=== PATIENT | male | born 1950 | race Caucasian/White ===

== ENCOUNTER 2020-05-15 05:42 | Day surgery (SDC) | payer MEDICARE, MEDICAID ==
[2020-05-15] MEDS ORDERED: SODIUM CHLORIDE 0.9% 1,000 ML ONE (06:16)
[2020-05-15] MEDS ORDERED: IOHEXOL 300 MG/ML 50 ML VIAL ONE (07:19)
[2020-05-15] MEDS ORDERED: SODIUM BICARBONATE 50 MEQ/50 ML VIAL ONE (07:19)
[2020-05-15] MEDS ORDERED: LIDOCAINE/PF 1% 30 ML VIAL ONE (07:19)
[2020-05-15] MEDS ORDERED: IOHEXOL 300 MG/ML 100 ML VIAL ONE ×2 (07:19→07:29)
[2020-05-15 07:21] LABS: GLUCOMETER DEV NAME(LOC) SDS.; GLUCOSE,POINT OF CARE 138 MG/DL (70-110)
[2020-05-15 07:42] VITALS: BP 143/82
[2020-05-15] MEDS ORDERED: NITROGLYCERIN 50 MG/D5% WATER 0 ML ONE (07:54)
[2020-05-15] MEDS ORDERED: SODIUM CHLORIDE 0.9% 1,000 ML IV ONE ×3 (08:00→09:15)
[2020-05-15] MEDS ORDERED: MIDAZOLAM HCL 2 MG/2 ML VIAL ONE (08:10)
[2020-05-15] MEDS ORDERED: FentaNYL CITRATE PF 100 MCG/2 ML VIAL ONE (08:10)
[2020-05-15] MEDS ORDERED: MIDAZOLAM HCL 2 MG/2 ML VIAL IVP ONE ×2 (08:30)
[2020-05-15] MEDS ORDERED: SODIUM CHLORIDE 0.9% 250 ML IV ONE (08:30)
[2020-05-15] MEDS ORDERED: FentaNYL CITRATE PF 100 MCG/2 ML VIAL IVP ONE ×2 (08:30)
[2020-05-15] MEDS ORDERED: ASPIRIN 325 MG TABLET ONE (08:30)
[2020-05-15] MEDS ORDERED: TICAGRELOR 90 MG TABLET ONE (08:30)
[2020-05-15] MEDS ORDERED: ASPIRIN 325 MG TABLET PO ONE (08:45)
[2020-05-15] MEDS ORDERED: TICAGRELOR 90 MG TABLET PO ONE ×2 (08:45→14:30)
[2020-05-15] MEDS ORDERED: HEPARIN SODIUM,PORCINE 5,000 UNITS/ML VIAL IVP ONE (08:45)
[2020-05-15] MEDS ORDERED: HEPARIN SODIUM 1000 UNITS/NS 1,000 ML IARTER ONE (09:00)
[2020-05-15] MEDS ORDERED: IOHEXOL 300 MG/ML 100 ML VIAL IARTER ONE ×2 (09:00)
[2020-05-15] MEDS ORDERED: IOHEXOL 300 MG/ML 50 ML VIAL IARTER ONE (09:00)
[2020-05-15 09:12] VITALS: BP 133/74
[2020-05-15] MEDS ORDERED: LOSARTAN POTASSIUM 50 MG TABLET PO ONE (11:15)
[2020-05-15] MEDS ORDERED: ATOR40TA28 PO (13:04)
[2020-05-15] MEDS ORDERED: EZET10TA13 PO (13:04)
[2020-05-15] MEDS ORDERED: METO25XL PO (13:04)
[2020-05-15] MEDS ORDERED: ASPI-1450 PO (13:04)
[2020-05-15] MEDS ORDERED: TICA90TA PO (13:04)
[2020-05-15] MEDS ORDERED: LOSA25TA21 PO (13:04)
== END 2020-05-15 15:00 | disposition home or self-care (01) ==
LOC: CATHLAB 05:42
PROVIDERS: ATTEND Internal Medicine Interventional Cardiology
DX: R94.39 Abnormal result of other cardiovascular function study (principal); I25.119 Atherosclerotic heart disease of native coronary artery with unspecified angina pectoris; R07.9 Chest pain, unspecified
CPT/HCPCS: 82962; 93458; 99152; 99153; C1769; C1874; C1887; C9600; J2250; J3010; J3490 ×2; J7030; Q9967 ×2; 92920; 92928

== ENCOUNTER 2020-09-18 08:43 | Day surgery (SDC) | payer MEDICARE, MEDICAID ==
[~2020-09-18] VITALS: Ht 180.3 cm; Wt 92.7 kg
[~2020-09-18 08:43] MED LIST: ASPI-1450 PO; ATOR40TA28 PO; EZET10TA57 PO; LOSA25TA21 PO; METO25XL PO; SODIUM CHLORIDE 0.9% 1,000 ML IV ONE; SODIUM CHLORIDE 0.9% 1,000 ML ONE; TICA90TA PO
[2020-09-18] MEDS ORDERED: NITROGLYCERIN 0.4 MG SUBLINGUAL TABLET #25 SL ONE ×2 (10:28→10:30)
[2020-09-18] MEDS ORDERED: HEPARIN SODIUM 1000 UNITS/NS 1,000 ML ONE (10:36)
[2020-09-18] MEDS ORDERED: IOHEXOL 300 MG/ML 150 ML VIAL ONE (10:36)
[2020-09-18] MEDS ORDERED: LIDOCAINE/PF 1% 30 ML VIAL ONE (10:36)
[2020-09-18] MEDS ORDERED: SODIUM BICARBONATE 50 MEQ/50 ML VIAL ONE (10:36)
[2020-09-18 11:19] LABS: GLUCOMETER DEV NAME(LOC) SDS.; GLUCOSE,POINT OF CARE 118 MG/DL (70-110)
[2020-09-18 12:15] VITALS: BP 117/83
[2020-09-18] MEDS ORDERED: FentaNYL CITRATE PF 100 MCG/2 ML VIAL ONE ×2 (12:20→12:34)
[2020-09-18] MEDS ORDERED: MIDAZOLAM HCL 2 MG/2 ML VIAL ONE ×2 (12:20→12:34)
[2020-09-18] MEDS ORDERED: IOHEXOL 300 MG/ML 50 ML VIAL ONE (12:24)
[2020-09-18] MEDS ORDERED: IOHEXOL 300 MG/ML 150 ML VIAL IARTER ONE (12:30)
[2020-09-18] MEDS ORDERED: HEPARIN SODIUM 1000 UNITS/NS 1,000 ML IARTER ONE (12:30)
[2020-09-18] MEDS ORDERED: IOHEXOL 300 MG/ML 50 ML VIAL IARTER ONE (12:30)
[2020-09-18] MEDS ORDERED: MIDAZOLAM HCL 2 MG/2 ML VIAL IVP ONE ×2 (12:30)
[2020-09-18] MEDS ORDERED: FentaNYL CITRATE PF 100 MCG/2 ML VIAL IVP ONE ×3 (12:30→13:00)
[2020-09-18] MEDS ORDERED: LIDOCAINE 1% 30 ML/SOD BICARB 8.4% 4 ML SQ ONE (12:30)
[2020-09-18] MEDS ORDERED: ASPIRIN 81 MG CHEWABLE TABLET ONE (12:41)
[2020-09-18] MEDS ORDERED: TICAGRELOR 90 MG TABLET ONE (12:41)
[2020-09-18] MEDS ORDERED: TICAGRELOR 90 MG TABLET PO ONE (13:00)
[2020-09-18] MEDS ORDERED: ASPIRIN 81 MG CHEWABLE TABLET PO ONE (13:00)
[2020-09-18] MEDS ORDERED: HEPARIN SODIUM,PORCINE 5,000 UNITS/ML VIAL IVP ONE (13:00)
[2020-09-18 13:23] VITALS: BP 149/73
== END 2020-09-18 18:20 | disposition home or self-care (01) ==
LOC: CATHLAB 08:43
PROVIDERS: ATTEND Internal Medicine Interventional Cardiology
DX: I25.10 Atherosclerotic heart disease of native coronary artery without angina pectoris (principal); T82.855A Stenosis of coronary artery stent, initial encounter; I10 Essential (primary) hypertension; I73.9 Peripheral vascular disease, unspecified; E78.5 Hyperlipidemia, unspecified; Z88.0 Allergy status to penicillin; Z88.8 Allergy status to other drugs, medicaments and biological substances; Z79.899 Other long term (current) drug therapy; Z98.890 Other specified postprocedural states; Z87.891 Personal history of nicotine dependence; Y83.8 Other surgical procedures as the cause of abnormal reaction of the patient, or of later complication, without mention of misadventure at the time of the procedure; Z72.89 Other problems related to lifestyle; Z79.01 Long term (current) use of anticoagulants
CPT/HCPCS: 36415; 82962; 84132; 93005; 99152; 99153; C1874; C1887; C9600; J1644; J2250; J3010; J3490 ×2; J7030; Q9967 ×2; 92920; 92928; 92929